=== PATIENT | female | born 2000 | race Caucasian/White ===

== ENCOUNTER → 2024-05-26 | Outpatient (CLI) | payer BC, SELFPAY ==
[2024-05-30 11:08] LABS: PROLACTIN 10.2 ng/mL (4.8-33.4); Testosterone, % Free 2.75 % (0.50-2.80); Testosterone, Free 2.06 ng/dL (0.10-0.85); Testosterone, Total 75 ng/dL (13-71)
== END | disposition home or self-care (01) ==
LOC: LAB 08:53
PROVIDERS: Referring Provider Obstetrics & Gynecology; Visit Provider Obstetrics & Gynecology
DX: N91.1 Secondary amenorrhea (principal)
CPT/HCPCS: 36415; 82627; 82670; 84146; 84402; 84403; 84443; 82626